=== PATIENT | female | born 1990 | race American Indian/Alaskan Native ===

== ENCOUNTER 2016-08-30 08:07 | Emergency (ER) | payer SELFPAY ==
[2016-08-30 08:23] VITALS: BP 120/68
[2016-08-30 09:14] LABS: Hematocrit 42.2 % (30.3-42.9); Hemoglobin 14.2 gm/dl (10.1-14.3); Mean Corpuscular HGB Conc 34 % (30-34); Mean Corpuscular Hemoglobin 32 pg (28-32); Mean Corpuscular Volume 96 fl (79-97); Platelet Count 237 K/mm3 (140-440); Red Blood Count 4.39 M/mm3 (3.65-5.03); Red Cell Distribution Width 12.6 % (13.2-15.2); White Blood Count 4.1 K/mm3 (4.5-11.0)
[2016-08-30 09:15] LABS: Alanine Aminotransferase 19 units/L (7-56); Albumin 4.4 g/dL (3.9-5); Albumin/Globulin Ratio 1.2 %; Alkaline Phosphatase 66 units/L (35-129); Anion Gap 14 mmol/L; BUN/Creatinine Ratio 15.71; Bilirubin,Total 0.3 mg/dL (0.1-1.2); Blood Urea Nitrogen 11 mg/dL (7-17); Calcium 9.1 mg/dL (8.4-10.2); Carbon Dioxide 26 mmol/L (22-30); Glucose 104 mg/dL (65-100); Lipase 40 units/L (13-60); Potassium 4.1 mmol/L (3.6-5.0); Sodium 138 mmol/L (137-145)
[2016-08-30 10:14] LABS: Blastocytes % (Manual) 0 %; RBC Morphology Normal
[2016-08-30 10:15] LABS: Diff Status Complete; Smudge Cells 1+
[2016-08-30] MEDS ORDERED: TORADOL IV ONE (12:44)
[2016-08-30] MEDS ORDERED: REGLAN IV ONE (12:44)
[2016-08-30] MEDS ORDERED: BENADRYL IV ONE (12:44)
[2016-08-30] MEDS ORDERED: NACL 0.9% 1000 ML 1,000 ML IV ONE (12:44)
--- NOTE | 2016-08-30 12:45 | Emergency Department Report ---
ED Headache HPI - General Chief Complaint: Abdominal Pain Stated Complaint: MIGRAINE/VOMTING/CHILLS/RUNNY NOSE Time Seen by Provider: 08/30/16 12:43 - History of Present Illness Initial Comments: Patient reports a migraine headache, sore throat, generalized body aches, nasal drainage and chills that started 5 days ago. She also reports diffuse abdominal pain with vomiting that started yesterday. She denies sick contact, fever, neck stiffness, closed spaces, head trauma or LOC Timing/Duration: other Quality: achy (5 days ago) Head Injury Location: frontal, temporal Recent Head Trauma: no recent headache/trauma, chronic headaches Modifying Factors: improves with: rest. worse with: exposure to light, medication, movement Associated Symptoms: facial pain, nausea/vomiting, nasal drainage. denies: confusion, fatigue, fever/chills, flushing, loss of consciousness, nasal congestion, numbness in legs/feet, rash, seizures, sinus infection, stiff neck, vision changes, weakness Allergies/Adverse Reactions: Allergies No Known Allergies Allergy (Unverified 08/30/16 08:20) Home Medications: Ambulatory Orders Famotidine [Pepcid] 20 mg PO BID #10 tablet 08/30/16 Ibuprofen [Motrin 600 MG tab] 600 mg PO Q8H PRN #30 tablet 08/30/16 ED Review of Systems ROS: Stated complaint: MIGRAINE/VOMTING/CHILLS/RUNNY NOSE Other details as noted in HPI Constitutional: denies: chills, diaphoresis, fever, malaise, weakness Eyes: denies: eye pain, eye discharge, vision change ENT: other (nasal drainage). denies: ear pain, throat pain, dental pain, hearing loss, epistaxis, congestion Respiratory: denies: cough, orthopnea, shortness of breath, SOB with exertion, SOB at rest, stridor, wheezing Cardiovascular: denies: chest pain, palpitations, dyspnea on exertion, orthopnea , edema, syncope, paroxysmal nocturnal dyspnea Gastrointestinal: abdominal pain, nausea, vomiting. denies: diarrhea, constipation Genitourinary: denies: urgency, dysuria, frequency, hematuria, discharge, abnormal menses, dyspareunia Musculoskeletal: denies: back pain, joint swelling, arthralgia, myalgia Skin: denies: rash, lesions, change in color, change in hair/nails, pruritus Neurological: headache. denies: weakness, numbness, paresthesias, confusion, abnormal gait, vertigo Psychiatric: denies: anxiety, depression Hematological/Lymphatic: denies: easy bleeding, easy bruising, swollen glands ED Past Medical Hx - Medications Home Medications: Home Medications Medication Instructions Recorded Confirmed Last Taken Type Famotidine [Pepcid] 20 mg PO BID #10 tablet 08/30/16 Unknown Rx Ibuprofen [Motrin 600 MG tab] 600 mg PO Q8H PRN #30 tablet 08/30/16 Unknown Rx ED Physical Exam - General Limitations: No Limitations General appearance: alert, in no apparent distress - Head Head exam: Present: atraumatic, normocephalic, normal inspection - Eye Eye exam: Present: normal appearance, PERRL, EOMI Pupils: Present: normal accommodation - ENT ENT exam: Present: normal exam, normal orophraynx, mucous membranes moist, TM's normal bilaterally, normal external ear exam, other (nasal passages with watery drainage). Absent: mucous membranes dry - Neck Neck exam: Present: normal inspection, full ROM. Absent: tenderness, meningismus, lymphadenopathy, thyromegaly - Respiratory Respiratory exam: Present: normal lung sounds bilaterally. Absent: respiratory distress, wheezes, rales, rhonchi, stridor, chest wall tenderness, accessory muscle use, decreased breath sounds, prolonged expiratory - Cardiovascular Cardiovascular Exam: Present: regular rate, normal rhythm, normal heart sounds. Absent: systolic murmur, diastolic murmur, rubs, gallop, clicks, JVD, S3, S4 - GI/Abdominal GI/Abdominal exam: Present: soft, tenderness (epigastric), normal bowel sounds. Absent: distended, guarding, rebound, rigid - Extremities Exam Extremities exam: Present: normal inspection, full ROM, normal capillary refill. Absent: tenderness, pedal edema, joint swelling, calf tenderness - Back Exam Back exam: Present: normal inspection. Absent: CVA tenderness (R), CVA tenderness (L) - Neurological Exam Neurological exam: Present: alert, oriented X3, CN II-XII intact, normal gait, reflexes normal, other (no focal neural deficits). Absent: motor sensory deficit - Psychiatric Psychiatric exam: Present: normal affect, normal mood. Absent: depressed, agitated - Skin Skin exam: Present: warm, dry, intact, normal color. Absent: rash ED Course Vital Signs 08/30/16 08:20 Temperature 97.9 F Pulse Rate 69 Respiratory 16 Rate Blood Pressure 120/68 O2 Sat by Pulse 100 Oximetry - Reevaluation(s) Reevaluation #1: 08/30/16 12:45 Intravenous fluids, anti-medic, antihistamine and analgesics ordered ED Medical Decision Making - Lab Data Result diagrams: 08/30/16 08:43 08/30/16 08:43 Lab Results 08/30/16 08/30/16 08/30/16 Range/Units 08:43 08:43 10:14 WBC 4.1 L (4.5-11.0) K/mm3 RBC 4.39 (3.65-5.03) M/mm3 Hgb 14.2 (10.1-14.3) gm/dl Hct 42.2 (30.3-42.9) % MCV 96 (79-97) fl MCH 32 (28-32) pg MCHC 34 (30-34) % RDW 12.6 L (13.2-15.2) % Plt Count 237 (140-440) K/mm3 [place] % (Auto) Grocery Manager Add Manual Diff Complete Total Counted 100 Seg Neutrophils % Grocery Manager Seg Neuts % (Manual) 34.0 L (40.0-70.0) % Band Neutrophils % 0 % Lymphocytes % (Manual) 40.0 H (13.4-35.0) % Reactive Lymphs % (Man) 2.0 % Monocytes % (Manual) 19.0 H (0.0-7.3) % Eosinophils % (Manual) 4.0 (0.0-4.3) % Basophils % (Manual) 1.0 (0.0-1.8) % Metamyelocytes % 0 % Myelocytes % 0 % Promyelocytes % 0 % Blast Cells % 0 % Nucleated RBC % Not Reportable Seg Neutrophils # Man 1.4 L (1.8-7.7) K/mm3 Band Neutrophils # 0.0 K/mm3 Lymphocytes # (Manual) 1.6 (1.2-5.4) K/mm3 Abs React Lymphs (Man) 0.1 K/mm3 Monocytes # (Manual) 0.8 (0.0-0.8) K/mm3 Eosinophils # (Manual) 0.2 (0.0-0.4) K/mm3 Basophils # (Manual) 0.0 (0.0-0.1) K/mm3 Metamyelocytes # 0.0 K/mm3 Myelocytes # 0.0 K/mm3 Promyelocytes # 0.0 K/mm3 Blast Cells # 0.0 K/mm3 WBC Morphology Not Reportable Hypersegmented Neuts Not Reportable Hyposegmented Neuts Not Reportable Hypogranular Neuts Not Reportable Smudge Cells 1+ Toxic Granulation Not Reportable Toxic Vacuolation Not Reportable Dohle Bodies Not Reportable Pelger-Huet Anomaly Not Reportable Charis Rods Not Reportable Platelet Estimate Appears normal Clumped Platelets Not Reportable Plt Clumps, EDTA Not Reportable Large Platelets Not Reportable Giant Platelets Not Reportable Platelet Satelliting Not Reportable Plt Morphology Comment Not Reportable RBC Morphology Normal Dimorphic RBCs Not Reportable Polychromasia Not Reportable Hypochromasia Not Reportable Poikilocytosis Not Reportable Anisocytosis Not Reportable Microcytosis Not Reportable Macrocytosis Not Reportable Spherocytes Not Reportable Pappenheimer Bodies Not Reportable Sickle Cells Not Reportable Target Cells Not Reportable Tear Drop Cells Not Reportable Ovalocytes Not Reportable Helmet Cells Not Reportable [place] Bodies Not Reportable [place] Rings Not Reportable [place] Cells Not Reportable Bite Cells Not Reportable Crenated Cell Not Reportable Elliptocytes Not Reportable Acanthocytes (Spur) Not Reportable Rouleaux Not Reportable Hemoglobin C Crystals Not Reportable Schistocytes Not Reportable Malaria parasites Not Reportable [place] Bodies Not Reportable Hem Pathologist Commnt No Sodium 138 (137-145) mmol/L Potassium 4.1 (3.6-5.0) mmol/L Chloride 102.0 (98-107) mmol/L Carbon Dioxide 26 (22-30) mmol/L Anion Gap 14 mmol/L BUN 11 (7-17) mg/dL Creatinine 0.7 (0.7-1.2) mg/dL Estimated GFR > 60 ml/min BUN/Creatinine Ratio 15.71 % Glucose 104 H (65-100) mg/dL Calcium 9.1 (8.4-10.2) mg/dL Total Bilirubin 0.3 (0.1-1.2) mg/dL AST 22 (5-40) units/L ALT 19 (7-56) units/L Alkaline Phosphatase 66 (35-129) units/L Total Protein 8.0 (6.3-8.2) g/dL Albumin 4.4 (3.9-5) g/dL Albumin/Globulin Ratio 1.2 % Lipase 40 (13-60) units/L Urine Color Yellow (Yellow) Urine Turbidity Clear (Clear) Urine pH 6.0 (5.0-7.0) Ur Specific [place] 1.026 (1.003-1.030) Urine Protein <15 mg/dl (Negative) mg/dL Urine Glucose (UA) Neg (Negative) mg/dL Urine Ketones Neg (Negative) mg/dL Urine Blood Neg (Negative) Urine Nitrite Neg (Negative) Ur Reducing Substances Not Reportable Urine Bilirubin Neg (Negative) Urine Ictotest Not Reportable Urine Urobilinogen 4.0 (<2.0) mg/dL Ur Leukocyte Esterase Neg (Negative) Urine WBC (Auto) 3.0 (0.0-6.0) /HPF Urine RBC (Auto) 2.0 (0.0-6.0) /HPF U Epithel Cells (Auto) 9.0 (0-13.0) /HPF Urine Bacteria (Auto) 1+ (Negative) /HPF Urine Mucus 3+ /HPF Urine HCG, Qual Negative (Negative) Vital Signs 08/30/16 08:20 Temperature 97.9 F Pulse Rate 69 Respiratory 16 Rate Blood Pressure 120/68 O2 Sat by Pulse 100 Oximetry - Medical Decision Making During the course of ED, Intravenous fluids, anti-medic, antihistamine, analgesics and laboratory studies were ordered. Patient reports symptomatic relief from medications given in the ED. She was sent home with prescriptions for ibuprofen and Pepcid, instructed to drink plenty of fluids to stay hydrated , follow up with selective referrals given at discharge, she verbalize understanding - Differential Diagnosis Migraine headache, Sinusitis, Abdominal pain Critical care attestation.: If time is entered above; I have spent that time in minutes in the direct care of this critically ill patient, excluding procedure time. ED Disposition Clinical Impression: Migraine headache Qualifiers: Migraine type: without aura Status migrainosus presence: with status migrainosus Intractability: not intractable Qualified Code(s): G43.001 - Migraine without aura, not intractable, with status migrainosus Abdominal pain Qualifiers: Abdominal location: epigastric Qualified Code(s): R10.13 - Epigastric pain Disposition: DISCHARGED TO HOME OR SELFCARE Is pt being admited?: No Does the pt Need Aspirin: No Condition: Stable Instructions: Abdominal Pain (ED), Migraine Headache (ED) Additional Instructions: Take medication as directed. Drink plenty of fluids and noted to stay hydrated. Follow up with selective referrals given at discharge Prescriptions: Ibuprofen [Motrin 600 MG tab] 600 mg PO Q8H PRN #30 tablet PRN Reason: Pain Famotidine [Pepcid] 20 mg PO BID #10 tablet Referrals: DOMINGUEZ RICE MD [Staff Physician] - 3-5 Days RAMONA ORTIZ MD [Staff Physician] - 3-5 Days Forms: Work/School Release Form(ED), Accompanied Note Time of Disposition: 14:41
[2016-08-30 12:53] LABS: Bacteria,Urine 1+ /HPF (Negative); Bilirubin,Urine NEG (Negative); Blood,Urine NEG (Negative); Ketones,Urine NEG (Negative); Leukocyte Esterase,Urine NEG (Negative); Mucus,Urine 3+ /HPF; Nitrite,Urine NEG (Negative); Protein,Urine <15 mg/dL mg/dL (Negative)
== END 2016-08-30 15:00 | disposition home or self-care (01) ==
LOC: ED 08:07
DX: G43.001 Migraine without aura, not intractable, with status migrainosus (principal); R10.13 Epigastric pain
CPT/HCPCS: 36415; 80053; 81001; 81025; 83690; 85007; 85025; 96361; 96374; 96375; 99283; J1200; J1885; J2765; J7030